=== PATIENT | female | born 2000 | race Caucasian/White ===

== ENCOUNTER 2020-07-20 12:33 | Emergency (ER) | payer SELFPAY ==
[~2020-07-20] VITALS: Ht 170.2 cm; Wt 59.0 kg
--- NOTE | 2020-07-20 12:33 | NUR ---
PT BIB SELF C/O COUGH AND CONGESTION. PT IS AAOX4, NOT IN RESPIRATORY DISTRESS, HOOKED TO [employer] AND O2 VIA NC AT 3 LPM. KEPT RESTED AND COMFORTABLE. WILL CONTINUE TO MONITOR.
--- NOTE | 2020-07-20 13:05 | NUR ---
SEEN AND EXAMINED BY .
--- NOTE | 2020-07-20 13:11 | NUR ---
ER PHLEB AT BEDSIDE FOR BLOOD DRAW.
--- NOTE | 2020-07-20 13:16 | NUR ---
PT REFUSE COVID TEST. AWARE.
--- NOTE | 2020-07-20 13:20 | NUR ---
PT STILL STRONGLY REFUSING TO COMPLETE BLOOD DRAW AND COVID TEST. PT STATED SHE JUST WANTS TO LEAVE AMA. DR. TERRAZAS MADE AWARE, PER MD BUT HE WILL D/C PT.
--- NOTE | 2020-07-20 13:29 | NUR ---
pt did not want to wait for her d/c instructions. and just left.
[2020-07-20 13:37] VITALS: BP 122/78
== END 2020-07-20 13:38 | disposition home or self-care (01) ==
LOC: ER 12:39
DX: J06.9 Acute upper respiratory infection, unspecified (principal); Z88.0 Allergy status to penicillin; Z59.0 Homelessness

== ENCOUNTER 2021-05-12 14:17 | Emergency (ER) | payer OTHER ==
[~2021-05-12] VITALS: Ht 162.6 cm; Wt 73.9 kg
--- NOTE | 2021-05-12 15:32 | NUR ---
SEEN AND EXAMINED BY DR BENJAMIN. STABLE VITALS. MEDICALLY CLEARED FOR BOOKING. DISCHARGE TO PD IN STABLE CONDITION.
[2021-05-12 15:34] VITALS: BP 105/59
== END 2021-05-12 15:34 ==
LOC: ER 14:19
DX: F11.10 Opioid abuse, uncomplicated (principal); Z88.0 Allergy status to penicillin; F17.200 Nicotine dependence, unspecified, uncomplicated; Z59.0 Homelessness